=== PATIENT | female | born 1995 | race Caucasian/White ===

== ENCOUNTER 2017-02-08 20:31 | Emergency (ER) | payer OTHER ==
[2017-02-08 23:04] LABS: ALANINE AMINOTRANSFERASE 45 U/L (9-52); ALBUMIN 4.9 g/dL (3.5-5.0); ALCOHOL 90 mg/dL (NONE DETECTED); ALKALINE PHOSPHATASE 67 U/L (38-126); ANION GAP 15 (5-19); ASPARTATE AMINO TRANSFERASE 35 U/L (14-36); BILIRUBIN,DIRECT 0.4 mg/dL (0.0-0.4); BILIRUBIN,TOTAL 0.6 mg/dL (0.2-1.3); BLOOD UREA NITROGEN 8 mg/dL (7-20); CARBON DIOXIDE 22 mmol/L (22-30); CHLORIDE 108 mmol/L (98-107); CREATININE RESULT 0.77 mg/dL (0.52-1.25); GLUCOSE 78 mg/dL (75-110); POTASSIUM 4.2 mmol/L (3.6-5.0); TOTAL PROTEIN 8.2 g/dL (6.3-8.2)
[2017-02-08 23:04] LABS: APPEARANCE,URINE CLEAR; BILIRUBIN,URINE NEGATIVE (NEGATIVE); GLUCOSE, URINE NEGATIVE (NEGATIVE); KETONES,URINE NEGATIVE (NEGATIVE); LEUKOCYTE ESTERASE,URINE TRACE (NEGATIVE); NITRITE,URINE NEGATIVE (NEGATIVE); PROTEIN,URINE NEGATIVE (NEGATIVE); URINE SPECIFIC GRAVITY 1.003; UROBILINOGEN,URINE NEGATIVE mg/dL (<2.0)
[2017-02-08 23:17] LABS: URINE BARBITURATES SCREEN NEGATIVE; URINE METHADONE SCREEN NEGATIVE; URINE OPIATES LOW NEGATIVE; URINE PHENCYCLIDINE SCREEN NEGATIVE
[2017-02-09 00:56] LABS: ABSOLUTE BASOPHILS # (AUTO) 0.1 10^3/uL (0.0-0.2); ABSOLUTE EOSINOPHILS # (AUTO) 0.4 10^3/uL (0.0-0.6); ABSOLUTE LYMPHOCYTES (AUTO) 2.1 10^3/uL (0.5-4.7); ABSOLUTE MONOCYTES (AUTO) 0.6 10^3/uL (0.1-1.4); ABSOLUTE NEUT (AUTO) 3.6 10^3/uL (1.7-8.2); BASOPHILS % (AUTO) 1.3 % (0-2); EOSINOPHILS % (AUTO) 6.2 % (0-6); HEMATOCRIT 40.3 % (36.0-47.0); HEMOGLOBIN 13.5 g/dL (12.0-15.5); HGB HCT DIFFERENCE 0.2; LYMPHOCYTES % (AUTO) 30.4 % (13-45); MEAN CORPUSCULAR HEMOGLOBIN 29.2 pg (27.0-33.4); MEAN CORPUSCULAR HGB CONC 33.4 g/dL (32.0-36.0); MEAN CORPUSCULAR VOLUME 87 fl (80-97); RED BLOOD COUNT 4.62 10^6/uL (3.72-5.28); RED CELL DISTRIBUTION WIDTH 13.5 % (11.5-14.0); SEGMENTED NEUTROPHILS % (AUTO) 53.1 % (42-78); WHITE BLOOD COUNT 6.8 10^3/uL (4.0-10.5)
--- NOTE | 2017-02-09 01:27 | ER Document Report ---
ED Psych Disorder / Suicide - General Chief Complaint: Depression Stated Complaint: PSYCH EVAL Time Seen by Provider: 02/09/17 00:52 TRAVEL OUTSIDE OF THE [place] IN LAST 30 DAYS: No - HPI Notes: This is a 22-year-old female who presents with what she thinks may be depression. She is 3 months with her child staying in [place] with her mother. Child does have a disability. She has multiple stressors and does not feel like the has helped her or care about her situation at all. She denies suicidal ideation but does not want to be alone. She does have a friend with her here. Denies hallucinations or delusions. Prior to her being she did have some depression but was untreated and does not use medication. She is seeking follow-up but does not want to use the [facility] as she feels they would not treat her fairly. She did drink a small amount of alcohol tonight but he does not feel intoxicated. She is not using any illicit drugs otherwise. She has made no suicide attempt in the past. Other stressors include her boyfriend she does not feel is supportive and he has been asked to leave. Denies any abuse. - Related Data Allergies/Adverse Reactions: metronidazole [From Flagyl] Allergy (Verified 02/08/17 21:45) Past Medical History - Social History Smoking Status: Never Smoker Chew tobacco use (# tins/day): No Frequency of alcohol use: Occasional Drug Abuse: None Family History: Reviewed & Not Pertinent Patient has suicidal ideation: Yes Patient has homicidal ideation: No Renal/ Medical History: Denies: Hx Peritoneal Dialysis Review of Systems - Review of Systems -: Yes All other systems reviewed and negative - Denies recent illness, fever or other change. Physical Exam - Vital signs Vitals: Temp Pulse Resp BP Pulse Ox 97.9 F 91 20 140/85 H 98 02/08/17 21:46 02/08/17 21:46 02/08/17 21:46 02/08/17 21:46 02/08/17 21:46 Interpretation: Hypertensive - Discussed with patient for follow-up. - Notes Notes: GENERAL: VS as per nursing doc. Well-appearing, well-nourished and in no acute distress but has obviously been slightly tearful. HEAD: Atraumatic, normocephalic EYES: Pupils equal round and reactive to light, extraocular movements intact, sclera anicteric, mild conjunctival injection or discharge. ENT: Nares patent, oropharynx clear without exudates, moist mucous membranes. NECK: Normal range of motion, supple without lymphadenopathy. LUNGS: Breath sounds clear to auscultation bilaterally and equal. No wheezes rales or rhonchi. HEART: Regular rate and rhythm without murmurs. Peripheral pulses equal. ABDOMEN: Soft, non-tender. BACK: Normal to inspection EXTREMITIES: Normal appearance without edema. NEUROLOGICAL: Cranial nerves grossly intact. Normal speech. Normal sensory and motor exams. No gross cerebellar abnormalities. PSYCH: Oriented 3. Calm, directable. No evidence of hallucinations or delusions. No reported suicidal or homicidal ideation. Normal thought content. Good insight. Speech is appropriate. SKIN: Warm, dry. No lacerations. Course - Re-evaluation Re-evalutation: 02/09/17 01:25 The patient is looking more for outpatient resources away from the system. She has a friend here that will help her through this and she contracts for safety verbally. Her friend is in agreement and feels she can be safe. I sat down with her and gave her a list of local resources including [employer]. She understands she can return and should return at any moment she feels she cannot keep herself safe. She will arrange follow-up this morning. - Vital Signs Vital signs: Temp Pulse Resp BP Pulse Ox 97.9 F 91 20 140/85 H 98 02/08/17 21:46 02/08/17 21:46 02/08/17 21:46 02/08/17 21:46 02/08/17 21:46 - Laboratory Result Diagrams: 02/09/17 00:46 02/08/17 22:18 Laboratory results interpreted by me: 02/08/17 02/08/17 02/09/17 22:18 22:43 00:46 Eosinophils % 6.2 H Chloride 108 H Ur Leukocyte Esterase TRACE H Salicylates < 1.0 L Acetaminophen < 10 L Discharge - Discharge Clinical Impression: Depressive symptoms Condition: Good Disposition: HOME, SELF-CARE Additional Instructions: Please return immediately or call 911 at any point you feel you cannot keep yourself safe. Please call this morning to arrange follow-up with somebody off the list for further evaluation and treatment.
[2017-02-09 01:42] VITALS: BP 121/81
--- NOTE | 2017-02-09 21:22 | EKG REPORT ---
SEVERITY:- NORMAL ECG - SINUS RHYTHM : Confirmed by: Josias Rodriguez 09-Feb-2017 21:21:25
== END 2017-02-09 01:40 | disposition home or self-care (01) ==
LOC: ER 20:31
DX: R45.7 State of emotional shock and stress, unspecified (principal); Z88.1 Allergy status to other antibiotic agents
CPT/HCPCS: 36415; 80053; 80307; 81001; 84703; 85025; 93005; 93010; 99284